=== PATIENT | female | born 1965 | race Asian ===

== ENCOUNTER 2017-03-28 18:56 | Emergency (ER) | payer BC ==
[~2017-03-28] VITALS: Ht 167.6 cm; Wt 136.1 kg
[2017-03-28 19:06] VITALS: TEMP 98.4
[2017-03-28 19:58] LABS: PLATELET COUNT 224 K/uL (152-353)
[2017-03-28 20:45] LABS: POTASSIUM 3.4 mmol/L (3.6-5.2)
[2017-03-28 22:13] VITALS: BP 189/92
== END 2017-03-28 22:13 | disposition home or self-care (01) ==
LOC: ED 18:56
DX: I10 Essential (primary) hypertension (principal); E66.9 Obesity, unspecified; J45.909 Unspecified asthma, uncomplicated
CPT/HCPCS: 36415; 36600; 80053; 82805; 85027; 94664; 94760; 96365; 96375; 99284; J0696; J1100; J2930